=== PATIENT | female | born 1975 | race Hispanic/Latino ===

== ENCOUNTER 2022-09-26 15:30 | Outpatient (RCR) | payer OTHER, MEDICAID, SELFPAY ==
--- NOTE | 2022-08-21 13:22 | PTOPEVAL1 ---
Assessment and note entered by Carmen Muñoz DPT Evaluation Information Assessment Status Evaluation Subjective Information Pt reports discomfort with walking and bending over in her groin. Pt reports swelling and she applies ice. Pain has been for about 2 months, after starting going to the gym to do exercises. Over the last week it has been the worst. Pt reports pain with sexual activity. Denies pain with urination or BM. Reports her pain seems to be between her anus and vagina. Pain increases with bending over, moving her legs certain ways. Pt reports a lot of tenderness through her groin. Returns to [facility] is not scheduled currently. Also reports she did have a fall last year where her legs , was on light duty for 2 months after her injury. Now walks a lot at work. Pt reports incontinence every day especially at work and avoids fluid to avoid incontinence or needing to void. She has had 2 children, vaginal deliveries. 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 Reported Pain Level Pain Score 7: Self Report Assessment PT Clinical Summary The patient is presenting to skilled therapy with a history of pelvic/groin pain for several months. She also reports daily urinary incontinence. She presents with significant and widespread pain with palpation, including pelvic floor, and demonstrates decreased pelvic floor strength and endurance. She will highly benefit from therapy to address these impairments in order to safely decrease pain and reduce incontinence to allow for patient to work and do all other activities without limitation. Plan of Care Interventions Electrical Stimulation,Hot Pack/Cold Pack,Manual Therapy,Neuro Re-education,Patient/Caregiver Education,Therapeutic Activities,Therapeutic Exercise PT Services Indicated Yes Treatment Frequency and 1 time a week for 4 weeks Duration These treatments will address the objective and functional deficits as defined above. The patient will be advanced safely and appropriately in order for the patient to progress towards his/her prior level of function. Additional exercises will be introduced and as well as a comprehensive home exercise program upon discharge, if needed, ?to ensure carryover of functional gains achieved in the clinic. This treatment plan has been reviewed and agreement upon by the patient.
--- NOTE | 2022-09-26 16:09 | OPREHPOC ---
Outpatient Therapy Plan of Care This is a Multidisciplinary Plan of Care that may contain components documented by all disciplines (PT, OT, and ST.) PT Problem 1 PT Problem #1 Knowledge Deficit PT Goal 1 Goal 1. Patient will perform independent HEP Progress Met PT Goal 2 Goal 2. Patient will verbalize urge suppression strategies Progress Not Met PT Problem 2 PT Problem #2 Pain PT Goal 1 Goal 1. Pelvic pain no higher than 2/10 upon exam Progress Met Comment 2. No pain with palpation of adductors to decrease pain with work activities PT Goal 2 Goal 2. No pain with palpation of adductors to decrease pain with work activities Progress Not Met PT Problem 3 PT Problem #3 Impaired Strength PT Goal 1 Goal 1. Improve pelvic floor strength to 3/5 to decrease incontinence Progress Not Met Comment 2. Improve pelvic floor endurance to 8 seconds to decrease incontinence PT Goal 2 Goal 2. Improve pelvic floor endurance to 8 seconds to decrease incontinence Progress Partially Met
--- NOTE | 2022-09-26 16:09 | PTOPPROGNS ---
Assessment and note entered by Carmen Muñoz DPSandhya Evaluation Information Assessment Status Progress Subjective Information Feels therapy has helped her but her pain continues to get worse throughout the day and throughout the week as she works. Does her exercises at times during the day and ices to relieve pain. Thinks she would like to go back to [facility] first due to continued high pain. Unable to give pain high and low numbers. Also reports she thinks her incontinence has improved. Information taken with [employer] interpreter service . Assessment PT Clinical Summary The patient has made some progress in therapy. Her pain has decreased at times and she reports no pain with pelvic floor palpation this visit. She also reports decreased incontinence and her endurance has improved. Due to her continued high pain at times and tenderness with palpation of adductors, recommend follow up with physician before resuming therapy. She would also likely benefit from future pelvic floor therapy to specifically address incontinence. Plan of Care Interventions Electrical Stimulation,Hot Pack/Cold Pack,Manual Therapy,Neuro Re-education,Patient/Caregiver Education,Therapeutic Activities,Therapeutic Exercise,Self-Care/Home Management PT Services Indicated Yes Treatment Frequency and hold therapy until follow up with physician Duration These treatments will address the objective and functional deficits as defined above. The patient will be advanced safely and appropriately in order for the patient to progress towards his/her prior level of function. Additional exercises will be introduced and as well as a comprehensive home exercise program upon discharge, if needed, ?to ensure carryover of functional gains achieved in the clinic. This treatment plan has been reviewed and agreement upon by the patient.
--- NOTE | 2022-12-16 09:32 | PCPTNOTE ---
Patient has not called to schedule further appointments and will be discharged.
== END 2022-11-19 23:59 | disposition home or self-care (01) ==
LOC: ANHPT 15:30
DX: R10.2 Pelvic and perineal pain (principal)
CPT/HCPCS: 97110; 97112; 97140; 97162